=== PATIENT | male | born 1955 | race Caucasian/White ===

== ENCOUNTER 2019-02-06 10:52 | Inpatient (IN) ==
[2019-02-06] MEDS ORDERED: NS 1,000 ML IV ONE ×3 (11:23→12:49)
[2019-02-06 11:49] LABS: BASO# 0.03 X1000 (0.0-0.2); BASO% 0.5 % (0.0-0.8); EOS# 0.47 X1000 (0.0-0.7); EOS% 7.3 % (0.0-10.0); HEMATOCRIT 36.2 % (42.0-52.0); HEMOGLOBIN 12.7 g/dL (14.0-18.0); IMM GRAN# 0.07 X1000 (0.0-0.04); IMM GRAN% 1.1 % (0.0-0.5); INR 1.15; LYMPH# 0.99 X1000 (1.2-3.4); LYMPH% 15.3 % (20.5-51.1); MCH 31.7 PG (27-31); MCHC 35.1 g/dL (33-37); MCV 90.3 FL (81-99); MONO# 0.35 X1000 (0.11-0.59); MONO% 5.4 % (1.7-9.3); NEUT# 4.55 X1000 (1.4-6.5); NEUT% 70.4 % (42.2-75.2); PROTIME 15.3 Seconds (11.0-16.0); RBC 4.01 XMIL (4.7-6.1); WBC 6.46 X1000 (4.8-10.8)
[2019-02-06 11:50] LABS: PTT 26.3 Seconds (22.3-41.8)
[2019-02-06 11:51] LABS: PLT 32 X1000 (130-400)
[2019-02-06] MEDS ORDERED: LANOXIN IV ONE (11:51)
[2019-02-06 11:56] LABS: CALCIUM 7.2 mg/dL (8.8-10.2); CREATININE 2.2 mg/dL (0.7-1.2); POTASSIUM 5.1 mmol/L (3.5-5.1); TOTAL BILIRUBIN 0.9 mg/dL (0.20-1.00)
[2019-02-06] MEDS ORDERED: DOXYCYCLINE 100 MG in NS 250 ML IV ONE (11:57)
[2019-02-06 12:11] LABS: EOS 9 % (1-10); LYMPHS 12 % (21-51); MONO 9 % (1-9); SEGS 70 % (42-75)
[2019-02-06] MEDS ORDERED: ROCEPHIN 2 GM in NS 50 ML IV SCH (13:00)
[2019-02-06] MEDS ORDERED: NS 1,000 ML IV SCH ×2 (13:00→14:00)
[2019-02-06 13:07] LABS: BILIRUBIN URINE NEGATIVE (NEGATIVE); BLOOD URINE 2+ (NEGATIVE); CLARITY CLEAR (CLEAR); COLOR YELLOW; GLUCOSE URINE NEGATIVE (NEGATIVE); KETONE URINE NEGATIVE (NEGATIVE); LEUKOCYTES URINE NEGATIVE (NEGATIVE); NITRITE URINE NEGATIVE (NEGATIVE); PROTEIN URINE TRACE mg/dL (NEGATIVE); UROBILINOGEN URINE NORMAL
[2019-02-06 13:08] LABS: URINE BACTERIA NEGATIVE /HFP; URINE CAST NONE SEEN /LPF; URINE CRYSTAL NONE SEEN /HPF; URINE EPITHELIAL CELLS <10 /HPF (<10); URINE RBC <10 /HPF (<10); URINE SOURCE CLEAN CATCH; URINE WBC <10 /HPF (<10); URINE YEAST NONE SEEN /HPF
--- NOTE | 2019-02-06 13:39 | Diag Imaging Result Doc PS360 ---
EXAM: CT THORAX W/O CONTRAST HISTORY: sob TECHNIQUE: CT chest without contrast COMPARISON: None. FINDINGS: There are tiny bilateral pleural effusions. No cardiomegaly. No thoracic aortic aneurysm. Mildly prominent mediastinal and hilar lymph nodes. There are increased interstitial markings due to vascular distention. No consolidation. Tiny nonspecific nodular densities in the lungs. Scattered granuloma. Limited images through the upper abdomen reveal prominent fatty infiltration of the liver IMPRESSION: 1.Prominent pulmonary edema with tiny pleural effusions 2.Tiny nonspecific nodular densities 3.Fatty infiltration of the liver This exam was performed using automated exposure control, adjustment of mA or kV according to patient size, and/or use of iterative reconstruction technique. Electronically signed by Evans Vergara 02/06/2019 1:36 PM
--- NOTE | 2019-02-06 13:39 | EKG Report ---
Test Performed on : 02/06/2019 11:44:15 AM Test Reason : cp Blood Pressure : / mmHG Vent. Rate : 138 BPM Atrial Rate : 153 BPM P-R Int : 000 ms QRS Dur : 088 ms QT Int : 314 ms P-R-T Axes : 000 008 060 degrees QTc Int : 475 ms Atrial fibrillation. with rapid ventricular response. Nonspecific T wave abnormality Abnormal ECG No previous ECGs available Unconfirmed Result
[2019-02-06] MEDS ORDERED: CARDIZEM IV ONE (13:42)
[2019-02-06] MEDS ORDERED: CARDIZEM 100 MG/NS 100 MG/100 ML IVPB IV SCH (13:45)
[2019-02-06] MEDS ORDERED: SOLU-MEDROL IV ONE (13:45)
[2019-02-06] MEDS ORDERED: LEVOPHED 8 MG in D5 1/2 NS 250 ML IV SCH (13:45)
--- NOTE | 2019-02-06 13:45 | Diag Imaging Result Doc PS360 ---
EXAM: CHEST-PORTABLE HISTORY: sob TECHNIQUE: Portable chest COMPARISON: None. FINDINGS: The lungs are well expanded. The heart is not enlarged. The vessels are distended. There are no infiltrates. No effusion identified. IMPRESSION: Pulmonary edema Electronically signed by Evans Vergara 02/06/2019 1:43 PM
[2019-02-06] MEDS: ROCEPHIN 2 GM in NS 50 ML IV SCH (14:00)
[2019-02-06] MEDS: CARDIZEM 125 MG/D5W 125 MG/125 ML IVPB IV SCH ×2 (14:38→23:14)
[2019-02-06] MEDS ORDERED: CARDIZEM 125 MG/D5W 125 MG/125 ML IVPB IV SCH (15:00)
[2019-02-06] MEDS: XOPENEX NEB INH SCH ×3 (15:30→23:18)
[2019-02-06] MEDS: ATROVENT NEB INH SCH ×3 (16:04→23:18)
--- NOTE | 2019-02-06 16:25 | Diag Imaging Result Doc PS360 ---
EXAM: US ABDOMEN-COMPLETE HISTORY: evaluate spleen; thrombocytopenic purpura TECHNIQUE: Abdominal ultrasound COMPARISON: None. FINDINGS: Normal right kidney. No hydronephrosis. Normal left kidney. No hydronephrosis. Urinary bladder is distended and is normal. The pancreas is predominantly obscured. Inferior vena cava and aorta are also poorly seen. There is fatty infiltration of the liver. It is difficult to penetrate the liver. No ascites. No gallstones. Common bile duct measures 5 mm. The spleen measures 3.6 x 11.3 cm. IMPRESSION: Fatty infiltration of the liver Electronically signed by Evans Vergara 02/06/2019 4:22 PM
[2019-02-06] MEDS ORDERED: LASIX IV ONE (16:27)
--- NOTE | 2019-02-06 16:54 | PROVIDER DOCUMENTATION ---
This chart was entered by Carla Priest Scribe, acting as scribe for Tc Vallejo CRNP. HPI-General Adult - General Chief Complaint: Weakness Stated Complaint: ALLERGIC REACTION Time Seen by Provider: 02/06/19 11:18 Source: patient Allergies/Adverse Reactions: Patient Allergies Allergy/AdvReac Type Severity Reaction Status Date / Time azithromycin [From Zithromax] Allergy SWELLING Verified 02/06/19 11:46 pregabalin [From Lyrica] Allergy SWELLING Verified 02/06/19 11:46 tapentadol [From Nucynta] Allergy SWELLING Verified 02/06/19 12:37 - History of Present Illness -Gen Adult Nature of Presenting Problems: 63 y/o male presents to ED with generalized weakness onset 6 days ago after working outside in the heat. Pt reports he finished zithromax and prednisone prescribed by PCP 2 days ago. Pt also complains of diarrhea and SOB onset 2 days ago. reports pt had "chigger bites" a few days ago. Pt is alert and oriented. Location of Pain/Injury: reports: none Pain Radiation: reports: no radiation Quality of Pain: reports: none Severity: reports: moderate Onset/Duration: reports: 6 days ago Timing: reports: still present Context/Activities at Onset: reports: other (working outside in heat) Modifying Factors: improves with: nothing Associated Symptoms: reports: diarrhea, fatigue, malaise, rash, shortness of breath, weakness. denies: back/neck pain, chest pain, fever/chills, genitourinary problems, seizure Similar Symptoms Previously?: No Recently seen or treated by another doctor?: No Review of Systems - Adult - REVIEW OF SYSTEMS - ADULT Constitutional: denies: chills, fever Eyes: reports: no symptoms reported Ears, Nose, Mouth & Throat: reports: no symptoms reported Cardiovascular: denies: chest pain, palpitations Respiratory: reports: shortness of breath. denies: cough Gastrointestinal: reports: diarrhea. denies: abdominal pain, nausea, vomiting Genitourinary: reports: no symptoms reported. denies: incontinence Musculoskeletal: denies: back pain, joint pain Integumentary: reports: no symptoms reported Neurological: reports: other (generalized weakness). denies: dizziness/vertigo, numbness, paresthesia, seizure, slurred speech Psychiatric: reports: no symptoms reported Endocrine: reports: no symptoms reported Hematologic/Lymphatic: reports: no symptoms reported Allergic/Immunologic: reports: no symptoms reported All Other Systems: Reviewed and Negative Past History - Adult - PAST MEDICAL HISTORY-ADULT Review of Records: reports: Old Records Reviewed, Nursing Assessment Review, Medications Reviewed Major Childhood Illnesses: reports: denies history Musculoskeletal: reports: chronic pain, intervertebral disc disease, other (gout) - PRIOR SURGERIES/PROCEDURES Surgical/Procedure History: reports: back/neck - IMMUNIZATION STATUS Childhood Immunizations: See Nurse Assessment Flu Vaccine: See Nurse Assessment - FAMILY HISTORY Family History: reviewed, not pertinent - SOCIAL HISTORY Smoking: quit greater than 1 year Substance Use: none/never Alcohol Use Frequency: occasionally Living Situation: family Physical Exam-General - PHYSICAL EXAM-ADULT Initial Vital Signs Reviewed: Yes - CONSTITUTIONAL General Appearance: alert, mild distress - EYES Eyes: PERRL/EOMI, pink conjunctivae - HEAD, EARS, NOSE, MOUTH & THROAT HENMT: normocephalic/atraumatic, moist mucous membranes, normal ENT inspection - NECK Neck: non-tender, full range of motion, supple - RESPIRATORY Respiratory: chest non-tender, lungs clear, normal breath sounds - CARDIOVASCULAR Cardiovascular: tachycardia, irregularly irregular - GASTROINTESTINAL (ABDOMEN) Abdominal Exam: normal bowel sounds, non tender, soft, no organomegaly, distended. negative: guarding, rigid, rebound - LYMPHATIC Lymphatic: no adenopathy - MUSCULOSKELETAL Back Exam: normal inspection, no CVA tenderness, no vertebral tenderness Extremity: normal range of motion, non-tender, normal gait - SKIN Integumentary: normal color, warm/dry, purpura (to hands, abdomen, back, and buttocks). negative: swelling, tenderness, warm, zoster-like rash - NEUROLOGIC Neurologic: grossly normal, no motor/sensory deficits - PSYCHIATRIC Psych/Mental Status: normal mood/affect, normal thought content, normal thought process, oriented x 3 Progress - PLAN OF CARE/RESULTS Progress/Plan/Lab Results: Vital Signs - 8 hr 02/06/19 11:02 Temperature 97.7 F Pulse Rate 81 Respiratory Rate 16 Blood Pressure 84/45 O2 Sat by Pulse Oximetry 95 Laboratory Results - last 24 hr 02/06/19 02/06/19 02/06/19 11:30 11:30 11:30 WBC 6.46 RBC 4.01 L Hgb 12.7 L Hct 36.2 L MCV 90.3 MCH 31.7 H MCHC 35.1 RDW Std Deviation 13.0 Plt Count 32 L* MPV Not Reportable Immature Gran % (Auto) 1.1 H Neut % (Auto) 70.4 Lymph % (Auto) 15.3 L [place] % (Auto) 5.4 Eos % (Auto) 7.3 Baso % (Auto) 0.5 Immature Gran # (Auto) 0.07 H Neut # (Auto) 4.55 Lymph # (Auto) 0.99 L [place] # (Auto) 0.35 Eos # (Auto) 0.47 Baso # (Auto) 0.03 PT 15.3 INR 1.15 PTT (Actin FS) 26.3 Lipase 14 Orders Category Date Time Status Nursing- Obtain EKG ONCE Care 02/06/19 11:15 Active Orthostatic Vital Signs NOW Care 02/06/19 11:29 Active CHEST-2 VIEWS [RAD] Stat Exams 02/06/19 11:15 Ordered CBC WITH DIFF [HEME] Stat Lab 02/06/19 11:30 Results CK PROFILE [SP CHEM] Stat Lab 02/06/19 11:30 Received COMPREHENSIVE METABOLIC PANEL [CHEM] Stat Lab 02/06/19 11:30 Received LIPASE [CHEM] Stat Lab 02/06/19 11:30 Completed PRO B-NATRIURETIC PEPTIDE Stat Lab 02/06/19 11:30 Received PROTIME WITH INR [COAG] Stat Lab 02/06/19 11:30 Completed PTT [COAG] Stat Lab 02/06/19 11:30 Completed TROPONIN T Stat Lab 02/06/19 11:30 Received TSH Stat Lab 02/06/19 11:[address] W/POSS RFLX CULT [URINALYSIS] Stat Lab 02/06/19 11:15 Uncollected 0.9% Sodium Chloride Inj [Ns] 1,000 ml Med 02/06/19 11:23 Active IV 999 mls/hr Digoxin [Lanoxin] Med 02/06/19 11:51 Discontinued 250 microgm IV NOW ONE EKG [EKG] Stat Ther 02/06/19 11:15 Ordered Laboratory Tests 02/06/19 02/06/19 02/06/19 11:30 11:30 11:30 WBC 6.46 RBC 4.01 L Hgb 12.7 L Hct 36.2 L MCV 90.3 MCH 31.7 H MCHC 35.1 RDW Std Deviation 13.0 Plt Count 32 L* MPV Not Reportable Immature Gran % (Auto) 1.1 H Neut % (Auto) 70.4 Lymph % (Auto) 15.3 L [place] % (Auto) 5.4 Eos % (Auto) 7.3 Baso % (Auto) 0.5 Immature Gran # (Auto) 0.07 H Neut # (Auto) 4.55 Lymph # (Auto) 0.99 L [place] # (Auto) 0.35 Eos # (Auto) 0.47 Baso # (Auto) 0.03 PT 15.3 INR 1.15 PTT (Actin FS) 26.3 Sodium 132 L Potassium 5.1 Chloride 97 L Carbon Dioxide 21 L Anion Gap 14 BUN 50 H Creatinine 2.2 H Estimated GFR/1.73 m2 31 BUN/Creatinine Ratio 23 Glucose 158 H Calculated Osmolality 281 Calcium 7.2 L Total Bilirubin 0.90 AST 25 ALT 29 Alkaline Phosphatase 59 Creatine Kinase 24 Troponin T Total Protein 6.0 L Albumin 2.0 L Globulin 4.0 Albumin/Globulin Ratio 1.0 Lipase 02/06/19 02/06/19 11:30 11:30 WBC RBC Hgb Hct MCV MCH MCHC RDW Std Deviation Plt Count MPV Immature Gran % (Auto) Neut % (Auto) Lymph % (Auto) [place] % (Auto) Eos % (Auto) Baso % (Auto) Immature Gran # (Auto) Neut # (Auto) Lymph # (Auto) [place] # (Auto) Eos # (Auto) Baso # (Auto) PT INR PTT (Actin FS) Sodium Potassium Chloride Carbon Dioxide Anion Gap BUN Creatinine Estimated GFR/1.73 m2 BUN/Creatinine Ratio Glucose Calculated Osmolality Calcium Total Bilirubin AST ALT Alkaline Phosphatase Creatine Kinase Troponin T < 0.010 Total Protein Albumin Globulin Albumin/Globulin Ratio Lipase 14 Result Diagrams: 02/06/19 11:30 02/06/19 11:30 - REASSESSMENT Reassessment #1 Time Reassessed: 12:01 Status: unchanged (Dr. Brand called to bedside to assess the pt.) Reassessment #2 Time Reassessed: 12:30 (discussed findings with pt and . Made aware of need for admission) - EKG 1 Time of EKG reading by physician:: 11:44 EKG Read and Signed by:: Antonino Brand EKG Interpretation (*Must complete 3 of following elements*): Abnormal Rate: 138 Rhythm: A fib with RVR [place]: normal QRS: normal VT Interval: normal ST Wave: non-specific ST changes 2 Time of EKG reading by physician:: 15:45 EKG Read and Signed by:: Antonino Brand EKG Interpretation (*Must complete 3 of following elements*): Normal Rate: 84 Rhythm: NSR [place]: normal QRS: normal VT Interval: normal ST Wave: normal - XRAY 1 XRAY Study: Chest Impression: See EMR Report - CONSULTS/PCP/HOSPITALIST Notification #1 *Consult/PCP/Hospitalist*: Dr. David Time Discussed: 12:02 Consult Disposition: other (Rocephin 2g IV; doxy) #2 Consult: Dr Brand spoke with Dr Steel Time Discussed: 12:14 Consult Disposition: Will see in ED, Admit Departure - Departure Date of Disposition Decision: 02/06/19 Time of Disposition Decision: 12:14 DIAGNOSIS: Atrial fibrillation with RVR, Vasculitis, Anemia with low platelet count, MONICA (acute kidney injury) Disposition: ADMITTED INPATIENT 09 Certified Medical Emergency: Emergent Condition: Fair - Critical Care Note This patient required my direct & personal management of CC.: No Attestation - Physician/ ELIZABETH Attestation Patient care was provided by Advanced Practice Provider:: Yes Advanced Practice Provider:: Tc Vallejo Advanced Practice Provider documentation review:: The Mid-level provider documentation, treatment plan and medical decision making was reviewed by the physician who agrees with all treatment and medical decision making by the P. The physician spent face to face time with patient:: Yes Advanced Practice Provider documentation review:: Supervising physician onsite and consulted in the evaluation and care of this patient. The physician did have a face to face encounter with the patient. This chart was documented by the indicated scribe, (Carla Priest Scribe) and accurately reflects the services I performed and decisions made by me, Tc Vallejo CRNP, as attested by the provider's signature.
--- NOTE | 2019-02-06 17:25 | CARDIOLOGY CONSULTATION ---
DATE: 02/06/2019 CHIEF COMPLAINT ON PRESENTATION: Rash, weakness. HISTORY OF PRESENT ILLNESS: Mr. Hadley is a 63-year-old white male with a history of gout and COPD who presented for a 7- to 10-day history of generalized weakness, fatigue, subjective fevers at home as well as a rash that he noted. This has worsened over the preceding several days. Upon presentation to the ER, he was noted to be in rapid atrial fibrillation. Since that time, he has actually converted to a sinus rhythm. The patient is not aware of a previous history of atrial fibrillation. He has no recent cough or chest pain. He has no other complaints to me. He is somewhat weak but seems to still have somewhat of a sense of humor and attempts to answer all questions. PAST MEDICAL HISTORY: Significant for: 1. Apparent COPD. 2. Gout. SOCIAL HISTORY: He is . is present here today. He previously smoked. FAMILY HISTORY: Significant for hypertension. REVIEW OF SYSTEMS: A 10-system review of systems is negative except for those things mentioned in HPI. PHYSICAL EXAMINATION: Vital Signs: The patient has been afebrile here. His heart rate is currently 82. Blood pressure is 99/66. Generally: He is an ill-appearing white male in no acute distress, lying in bed. HEENT: Oropharynx is moist. Poor dentition. Eye examination shows pink conjunctivae, white sclerae. Neck: Examination shows no obvious thyromegaly or thyroid tenderness. Cardiovascular: He sounds to be in a regular rate and rhythm. Telemetry currently at the time to my examination is in sinus. He has no lower extremity edema. Chest: Clear to auscultation bilaterally. He has no increased work of breathing. Abdomen: Soft, nontender, nondistended. He has no obvious organomegaly. Skin: Warm and dry throughout. Still has a rash. Neurological: He is moving all extremities well. He has no nuchal rigidity. He is mentating well. He answers all questions appropriately. PERTINENT DATA: His chest CT shows fatty infiltration of the liver. Tiny nonspecific nodular densities are noted with prominent pulmonary edema with tiny pleural effusions. Notably, he had an exercise stress test performed in November of this year showing a negative echocardiogram for any sort of ischemic or arrhythmic issues. PFT's done previously showed mild obstructive airway disease. His laboratory data shows a white count of 6.4. His hematocrit is 36. His platelet count is 32. I do not have any other labs to compare on this patient. His INR is 1.15. His D- dimer is greater than 20. His sodium is 132. Potassium is 5.1. His BUN is 50, creatinine 2.2. Again, nothing to compare to. His CRP is 200. ProBNP is 2604. His albumin is 2. His lactate is 2.8. His TSH is normal. His magnesium level is 2.1. His urinalysis was reviewed. ASSESSMENT: Mr. Hadley is a 63-year-old gentleman who presents with generalized malaise/fatigue as well as a marked rash. His initial presentation demonstrated atrial fibrillation on his EKG. PLAN: He currently is in sinus rhythm. His echocardiogram is pending. His thyroid studies are unremarkable. Currently I would not make any adjustments in his medications. I certainly would not anticoagulate the patient given his current issues with thrombocytopenia. He is on antibiotics for possible infectious issues. In addition he is on some low doses of Levophed. There is certainly a concern for a vasculitis or possible infectious etiology. I also have a concern for possible TTP. We will continue to follow along with the patient. cc: Ignacio Cotto MD
[2019-02-06] MEDS ORDERED: ZOFRAN IV PRN (17:50)
[2019-02-06] MEDS ORDERED: TYLENOL PO PRN (17:50)
[2019-02-06] MEDS: NS 1,000 ML IV SCH (18:21)
[2019-02-06] MEDS: PRILOSEC PO SCH (18:21)
--- NOTE | 2019-02-06 18:33 | Diag Imaging Result Doc PS360 ---
EXAM: LUNG SCAN / VQ HISTORY: elevated ddimer and sob TECHNIQUE: Nuclear medicine ventilation/perfusion lung scan COMPARISON: Chest x-ray performed earlier FINDINGS: 37.2 mCi DTPA used for ventilation images. 5.7 mCi MAA given intravenously for the perfusion images. Ventilation and perfusion images obtained in multiple projections. No wedge shaped perfusion defects. No ventilation perfusion mismatches. IMPRESSION: No evidence of a pulmonary embolus. Electronically signed by Evans Vergara 02/06/2019 6:30 PM
[2019-02-06 18:58] LABS: IRON SATURATION 36 %; TIBC 107 ug/dL; TOTAL IRON 39 ug/dL (53-167); UNBOUND IRON 68 ug/dL (112-346)
[2019-02-06 19:17] LABS: FERRITIN 1164 ng/mL (30-400)
[2019-02-06] MEDS: PULMICORT INH SCH (19:17)
[2019-02-06] MEDS: SOLU-MEDROL IV SCH (20:13)
[2019-02-06] MEDS ORDERED: DOXYCYCLINE 100 MG in NS 250 ML IV SCH (23:00)
[2019-02-07] MEDS: DOXYCYCLINE 100 MG in NS 250 ML IV SCH ×2 (00:12→13:22)
[2019-02-07] MEDS: SOLU-MEDROL IV SCH ×4 (03:16→20:18)
[2019-02-07] MEDS: XOPENEX NEB INH SCH ×6 (03:19→23:29)
[2019-02-07] MEDS: ATROVENT NEB INH SCH ×6 (03:19→23:29)
[2019-02-07 04:18] LABS: ALLEN TEST YES; BE -5.3 mmoll (-3.0-3.0); BLOOD TYPE ARTERIAL; HCO3-(ACT) 20.7 mmoll (20.0-26.0); METHB 0.8 % (0.0-1.5); O2(CT) 20.4 mL/dL (15.0-23.0); O2HB 94.7 % (95.0-99.0); PCO2(98.6) 34 mmHg (35-45); PO2(98.6) 85 mmHg (60-100); SAMPLE BLOOD; THB 15.3 g/dL (11.5-17.4); pH(98.6) 7.36 (7.35-7.45)
[2019-02-07 04:19] LABS: MODALITY CANNULA
[2019-02-07] MEDS: NS 1,000 ML IV SCH ×2 (05:12→13:22)
[2019-02-07] MEDS: PRILOSEC PO SCH (06:21)
[2019-02-07 07:17] LABS: ALB/GLOB RATIO 0.6; ALBUMIN 2.1 g/dL (3.5-5.0); CREATININE 1.6 mg/dL (0.7-1.2); POTASSIUM 3.5 mmol/L (3.5-5.1); TOTAL BILIRUBIN 0.42 mg/dL (0.20-1.00); TOTAL PROTEIN 5.7 g/dL (6.3-8.3)
[2019-02-07 07:19] LABS: CALCIUM 6.6 mg/dL (8.8-10.2)
[2019-02-07] MEDS: CARDIZEM 125 MG/D5W 125 MG/125 ML IVPB IV SCH (07:47)
[2019-02-07] MEDS ORDERED: CALCIUM GLUCONATE 1 GM in NS 50 ML IV ONE (07:49)
[2019-02-07 08:07] LABS: BASO# 0.01 X1000 (0.0-0.2); BASO% 0.3 % (0.0-0.8); EOS# 0.04 X1000 (0.0-0.7); EOS% 1.4 % (0.0-10.0); HEMATOCRIT 33.3 % (42.0-52.0); HEMOGLOBIN 11.8 g/dL (14.0-18.0); LYMPH# 0.76 X1000 (1.2-3.4); LYMPH% 26.3 % (20.5-51.1); MCH 31.4 PG (27-31); MCHC 35.4 g/dL (33-37); MCV 88.6 FL (81-99); MONO# 0.09 X1000 (0.11-0.59); MONO% 3.1 % (1.7-9.3); NEUT# 1.99 X1000 (1.4-6.5); NEUT% 68.9 % (42.2-75.2); PLT 17 X1000 (130-400); RBC 3.76 XMIL (4.7-6.1); RDW 12.5 % (11.5-14.5); WBC 2.89 X1000 (4.8-10.8)
[2019-02-07] MEDS: PULMICORT INH SCH ×2 (08:18→19:53)
[2019-02-07 08:29] LABS: BANDS 10 % (0-1); LYMPHS 20 % (21-51); MONO 4 % (1-9); SEGS 64 % (42-75)
[2019-02-07 08:30] LABS: LARGE PLATELETS 1+; POIKILOCYTOSIS 1+; SCHISTOCYTES OCCASIONAL
--- NOTE | 2019-02-07 10:46 | PROGRESS NOTE ---
DATE: 02/07/2019 SUBJECTIVE: This morning, Mr. Hadley refers to be doing fairly okay. No new complaints except for generalized weakness. The was at the bedside at the time of the encounter. OBJECTIVE: Vital Signs: Blood pressure is 121/66, pulse of 81, respirations are 20, temperature is 97.5 degrees. General Examination: Mr. Hadley is 63-year-old, gentleman. He is in bed. No distress. HEENT: Mucosa is pink and moist. Anicteric, acyanotic. Neck: Supple. Chest: Air entry is bilaterally reduced. A few bilateral end inspiratory crackles. Cardiovascular: Regular rate and rhythm. There are no murmurs, no rubs, no gallops. Abdomen: Soft. Globally distended but nontender. Bowel sounds present. Extremities: No pedal edema. FORESTRY FOREMAN: The patient is awake, alert, oriented. There is no focal neurological deficit. Skin: The patient has multiple petechial lesions all over his skin including the palms and the soles of his feet. Laboratory Data: WBC is down to 2.89, hemoglobin is 11.8, platelet count is down to 17,000. The patient has 10% of bands on the peripheral smear. There are positive schistocytes. Chemistry is also reviewed. Creatinine is down to 1.6 from 2.2. Imaging Studies: From yesterday, a chest x-ray showed pulmonary edema. A CT scan of the chest showed prominent pulmonary edema with tiny pleural effusions, nonspecific nodular densities. An ultrasound of the abdomen did show fatty infiltration of the liver. At some point, an EKG did show atrial fibrillation with rapid ventricular response. ASSESSMENT: 1. Pancytopenia with significant thrombocytopenia associated with petechiae, ecchymotic skin lesions, and fever. 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 The patient is currently on antimicrobial therapy. Serologies have all been ordered and hematology/oncology has also been consulted. I have personally spoken with Dr. Mcdowell who is taking calls for [facility] ([facility] 2. Sepsis. Source of infection is unclear. It is presumed to be a respiratory tract infection vs [place] Spotty Fever. The patient is currently on antimicrobial therapy. A CT scan of the chest did make mention of nonspecific nodular densities. 3. Congestive heart failure with preserved ejection fraction. 4. Paroxysmal atrial fibrillation, presumably due to the underlying ongoing infection. The patient has been evaluated by cardiology. Currently, he is in sinus. 5. History of chronic obstructive pulmonary disease, questionable exacerbation. The patient is on standard therapy. PLAN: In general, Mr. Hadley is extremely critical but seems to be stable from a hemodynamic standpoint. He has microangiopathic anemia which etiologies could include ongoing sepsis versus drug-induced versus DIC or TTP. Hematology/oncology is aware and I have spoken directly with . We are going to continue with supportive care. We are going to continue with antimicrobial therapy. The patient has been given a unit of platelets. We are going to repeat the platelet count on the blood to see if there has been any adequate response. ID has been consulted. cc: Que Oviedo MD MTDD
[2019-02-07 11:23] LABS: MPV 12.3 FL (7.4-10.4)
--- NOTE | 2019-02-07 12:08 | INFECTIOUS DISEASE CONSULT REP ---
DATE: 02/07/2019 CONCLUSION: I think the patient has [place] spotted fever. Another possibility would be meningococcemia. RECOMMENDATIONS: Yesterday, Dr. Brand from the emergency room called me about the patient. I recommended to him to treat the patient with doxycycline 100 mg IV every 12 hours and Rocephin 2 g IV every 12 hours. DISCUSSION: The patient tells me approximately 4 days ago, he developed an erythematous punctate rash. He also began feeling tired and weak. He did have diarrhea but he has not passed any stool today. He denies having dysuria, cough. [place] works [place] He recently had chigger bites. He also did notice that he had a tick on him. Laboratory studies thus far show a CBC with a white count of 2890, hemoglobin 11.8, and platelet count 17,000. Creatinine is 1.6. GFR is 44. Blood gases show a pH of 7.36, a PO2 of 85, and a pCO2 of 34. Liver function studies are normal. Urinalysis shows no white cells or bacteria. The blood cultures are pending. The patient did go into atrial fibrillation but now he is back in sinus rhythm. PAST MEDICAL HISTORY/REVIEW OF SYSTEMS: Eyes and Ears: He does not have any trouble hearing or seeing. Neck: No stiffness. Respiratory: No cough or shortness of breath. GI: See present illness. : No dysuria or flank pain. Neurologic: No seizures. No loss of motor or sensory function. Integument: See present illness. PREVIOUS HOSPITALIZATIONS AND OPERATIONS: The patient has had surgery on his spine. No metal was placed. 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 MEDICAL DISEASES: Positive for COPD. Negative for diabetes or hypertension. INFECTIOUS DISEASE HISTORY: Positive for pneumonia. Negative for urinary tract infection. FAMILY HISTORY: Positive for diabetes mellitus, stroke, COPD, and cancer. SOCIAL HISTORY: [place] He is . He has cats and dogs for pets. He works outside frequently and is exposed to ticks. ALLERGIES: The patient is allergic to azithromycin, Lyrica, and Nucynta. All the manifestations of these allergies were swelling. MEDICATIONS TAKEN AT HOME: Include allopurinol, fluticasone, magnesium oxide, Nasonex, and Singulair. PHYSICAL EXAMINATION: Vital Signs: Temperature is 97.5 degrees, pulse 81, respirations 20, blood pressure 121/66. The patient weighs 201 pounds. General: This is an ill- appearing, middle-aged male. He is in no acute distress, however. Head, Eyes, Ears, Nose, and Throat: He can hear my spoken words and see near objects. I did not see any white patches in his mouth. Neck: No meningismus. Lungs: Clear to auscultation. Cardiovascular: Heart rate is regular. Abdomen: Soft and nontender. Integument: The patient has a diffuse erythematous punctate rash. He also has confluent erythematous areas, especially on his hands. Neurologic: The patient is alert. He can move his extremities. There is no tremor. His sensation is intact to touch. His memory as regarding his medical history was decreased. Thank you for the consult. cc: Manuel David MD MTDGhislaine
[2019-02-07] MEDS: ROCEPHIN 2 GM in NS 50 ML IV SCH (13:22)
--- NOTE | 2019-02-07 13:29 | CARDIOLOGY PROGRESS NOTE ---
DATE: 02/07/2019 SUBJECTIVE: Mr. Hadley feels a little bit better today. He still is weak. PHYSICAL EXAMINATION: He is afebrile, heart rate is 78, blood pressure 123/70. He has not been febrile overnight. General: No acute distress. Cardiovascular: He sounds to be in a regular rate and rhythm. He has no obvious murmurs. He has no S3. His telemetry shows sinus. His chest exam is clear bilaterally. He has no increased work of breathing. His abdomen is soft, nontender. His skin exam demonstrates continued petechial rash that appears actually a little bit improved in his bilateral upper extremities/hands. DATA: White count 2.8, hematocrit 33, his platelet count is 21,000 which is lower than yesterday at 32,000. He has a bandemia of 10. Sedimentation rate is 88. His ABG was reviewed. His sodium is 133, potassium is 3.5, his BUN is 44, creatinine is 1.6 which is improved. His AST and ALT are normal. His albumin is 2.1. ASSESSMENT: Mr. Hadley is a 63-year-old gentleman who presents with what is thought to be either [place] spotted fever or possible meningococcemia. He is being treated with antibiotics. He was in atrial fibrillation as well. PLAN: He has converted to sinus rhythm. Currently, he seems to be a CHADS-VASc of 0. His echocardiogram is currently pending. We would consider long-term aspirin therapy when he recovers and his platelets are improved. cc: Ignacio Cotto MD
--- NOTE | 2019-02-07 15:51 | ECHO REPORT ---
ORDER DATE: 02/06/2019 INDICATION: Atrial fibrillation. Sepsis. FINDINGS: 1. The right atrium appears normal in size at 2.9 cm. 2. Trace tricuspid regurgitation. Insufficient data to accurately estimate RV systolic pressure. 3. Normal RV size and systolic function. 4. No significant pulmonic insufficiency. 5. Normal left atrial size at 2.6 cm. 6. No mitral valve prolapse. Trace mitral regurgitation. 7. Normal LV size, end-diastolic dimension of 4.5. Mild left ventricular hypertrophy with a posterior and interventricular septal wall thickness 1.2 and 1.1 cm respectively. Normal LV systolic function. Estimated EF is 60% with normal wall motion. 8. Aortic valve opens well, trileaflet. No evidence of stenosis or insufficiency. 9. Aorta appears normal in visualized segments. 10. No pericardial effusion seen. cc: MD Jt Roque MD
[2019-02-07 20:47] LABS: UR CREAT RANDOM 52.9 mg/dL (14-26); UR UREA NITROGEN RANDOM 895 mg/dL
[2019-02-07 20:52] LABS: UR SODIUM < 10 mmoll
[2019-02-08] MEDS: DOXYCYCLINE 100 MG in NS 250 ML IV SCH (00:16)
[2019-02-08] MEDS: SOLU-MEDROL IV SCH ×4 (03:03→20:45)
[2019-02-08] MEDS: NS 1,000 ML IV SCH ×3 (04:27→23:42)
[2019-02-08 04:28] LABS: ALLEN TEST YES; BE -1.8 mmoll (-3.0-3.0); BLOOD TYPE ARTERIAL; HCO3-(ACT) 23.4 mmoll (20.0-26.0); METHB 1.1 % (0.0-1.5); O2(CT) 22.7 mL/dL (15.0-23.0); O2HB 93.9 % (95.0-99.0); PCO2(98.6) 31 mmHg (35-45); PO2(98.6) 79 mmHg (60-100); SAMPLE BLOOD; SAO2 96.5 % (95.0-100.0); THB 17.2 g/dL (11.5-17.4); pH(98.6) 7.44 (7.35-7.45)
[2019-02-08 04:29] LABS: MODALITY ROOM AIR
[2019-02-08] MEDS: XOPENEX NEB INH SCH ×6 (04:40→23:08)
[2019-02-08] MEDS: ATROVENT NEB INH SCH ×6 (04:40→23:08)
[2019-02-08] MEDS: PRILOSEC PO SCH (06:16)
[2019-02-08 07:02] LABS: AGAP 14; ALB/GLOB RATIO 0.8; ALBUMIN 2.5 g/dL (3.5-5.0); ALKALINE PHOSPHATASE 54 U/L (32-122); BUN 35 mg/dL (8-22); CALCIUM 7.8 mg/dL (8.8-10.2); CHLORIDE 103 mmol/L (98-107); COSMO 286; CREATININE 1.2 mg/dL (0.7-1.2); ESTIMATED GFR > 60; GLUCOSE 183 mg/dL (70-104); GOT 45 U/L (10-34); GPT 46 U/L (10-44); POTASSIUM 3.6 mmol/L (3.5-5.1); SODIUM 137 mmol/L (136-145); TCO2 20 mmol/L (25-35); TOTAL BILIRUBIN 0.45 mg/dL (0.20-1.00); TOTAL PROTEIN 5.8 g/dL (6.3-8.3)
[2019-02-08 07:20] LABS: BASO# 0.01 X1000 (0.0-0.2); BASO% 0.2 % (0.0-0.8); HEMATOCRIT 30.5 % (42.0-52.0); HEMOGLOBIN 10.8 g/dL (14.0-18.0); IMM GRAN# 0.04 X1000 (0.0-0.04); LYMPH# 0.91 X1000 (1.2-3.4); LYMPH% 22.2 % (20.5-51.1); MCH 31.4 PG (27-31); MCHC 35.4 g/dL (33-37); MCV 88.7 FL (81-99); MONO# 0.38 X1000 (0.11-0.59); MONO% 9.3 % (1.7-9.3); MPV 12.5 FL (7.4-10.4); NEUT# 2.75 X1000 (1.4-6.5); NEUT% 67.3 % (42.2-75.2); PLT 14 X1000 (130-400); RBC 3.44 XMIL (4.7-6.1); RDW 12.4 % (11.5-14.5); WBC 4.09 X1000 (4.8-10.8)
[2019-02-08 07:36] LABS: BANDS 4 % (0-1); HYPOCHROM 1+; LARGE PLATELETS 1+; LYMPHS 24 % (21-51); SEGS 68 % (42-75)
--- NOTE | 2019-02-08 08:23 | EKG Report ---
Test Performed on : 02/06/2019 3:45:54 PM Test Reason : ER Blood Pressure : / mmHG Vent. Rate : 084 BPM Atrial Rate : 084 BPM P-R Int : 136 ms QRS Dur : 090 ms QT Int : 382 ms P-R-T Axes : 065 012 046 degrees QTc Int : 451 ms Normal sinus rhythm. Normal ECG When compared with ECG of 06-FEB-2019 11:44, (Unconfirmed) Sinus rhythm. has replaced Atrial fibrillation. Vent. rate has decreased BY 54 BPM Unconfirmed Result
[2019-02-08] MEDS: PULMICORT INH SCH ×2 (08:25→19:47)
--- NOTE | 2019-02-08 08:52 | CARDIOLOGY PROGRESS NOTE ---
DATE: 02/08/2019 SUBJECTIVE: Mr. Hadley has no complaints today other than just fatigue. He did not sleep well last night. PHYSICAL EXAMINATION: Vital signs: The patient is afebrile. His heart rate is 77, blood pressure 131/68. He appears to be in sinus rhythm today. General: He is in no acute distress. Cardiovascular: He sounds to be in a regular rate and rhythm. He has no murmurs. He has no S3. No lower extremity edema. Chest: Exam sounds clear bilaterally. He has no increased work of breathing. Abdomen: Soft, nontender. PERTINENT DATA: White count is 4, hematocrit is 30, platelet count is 14,000 which continues to trend down. He continues to have a bandemia. His sodium is 137, potassium 3.6, his BUN is 35, creatinine is 1.2 which continues to improve. His LFTs are mildly abnormal. His albumin has improved. His echocardiogram from yesterday demonstrated a normal ejection fraction, mild LVH, no severe valvular abnormalities. ASSESSMENT: Mr. Hadley is a 63-year-old gentleman who presented with possible [place] spotted fever versus meningococcemia. He is being treated with antibiotics. Atrial fibrillation was noted on presentation. PLAN: He has converted to sinus. He has a CHADS-VASc of 0. We will plan on initiating aspirin when his platelets recover. Otherwise, I have no acute recommendations. cc: Ignacio Cotto MD
--- NOTE | 2019-02-08 09:15 | INFECTIOUS DISEASE PROGRESS NO ---
DATE: 02/08/2019 PRESENT ILLNESS: The patient has [place] spotted fever. I doubt that he has meningococcemia. On exam, the patient appears to be developing a white coat on his tongue and I think this could be the beginning of oral candidiasis. MEDICATIONS: The patient currently is getting IV Rocephin and IV doxycycline. PHYSICAL EXAMINATION: Vital Signs: Temperature is 98 degrees, pulse 77, respirations 19, blood pressure 131/68. General: This is an ill-appearing male. He is in no acute distress. HEENT: He can hear my spoken words and see near objects. He does have erythema of his face. There is no drainage from his nose or ears. He looks like he is beginning to have some white coating on his tongue suggestive of oral candidiasis. Neck: No meningismus. Lungs: Clear to auscultation. Cardiovascular: Regular heart rate. Abdomen: Soft and nontender. Neurologic: Patient is alert. He can move his extremities. There is no tremor. Integument: The patient's rash appears to be decreasing. LAB AND X-RAY: CBC shows a white count of 4090, hemoglobin 10.8 and platelet count 14,000. Blood gases show a pH of 7.44, a PO2 of 79, and a pCO2 of 31. Creatinine is 1.2. GFR is greater than 60. The patient's immunoglobulin levels are normal. Specifically, IgA is 299 and IgG is 1258. Both blood cultures are negative at 48 hours. Lung scan shows no pulmonary emboli. Abdominal ultrasound shows a fatty liver. ASSESSMENT AND PLAN: The patient has [place] spotted fever and I doubt he has meningococcemia. I have discontinued Rocephin and have changed doxycycline from IV to p.o. Also I started the patient on nystatin swish and swallow. 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 cc: Manuel David MD [facility]ENTER[facility]hislaine
--- NOTE | 2019-02-08 10:10 | PROGRESS NOTE ---
DATE: 02/08/2019 SUBJECTIVE: This morning, Mr. Hadley referred to be doing a whole lot better. He feels much stronger and he thinks the petechial/ecchymotic lesions, especially on his hands, are clearing up. The was at the bedside at the time of the encounter. OBJECTIVE: Vital Signs: Blood pressure is 141/77, pulse of 87, respirations are 18, temperature is 98.8, patient is saturating 94%. General Examination: Mr. Hadley is a 63-year-old, gentleman. He is in bed. He does not seem to be in any distress. HEENT: Mucosa is pink and moist. Anicteric. Acyanotic. Neck: Supple. Chest: Good air entry bilaterally. There were no crepitations, no rhonchi. No accessory muscle use. Cardiovascular: Regular rate and rhythm. GI: Abdomen was soft. Distended but nontender. Bowel sounds present. Extremities: No pedal edema. 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 Skin: Still has some ecchymotic and petechial lesions on the hands and the lower extremities as well. Laboratory Data: Has been reviewed. WBC is up to 4.09, hemoglobin is 10.8, platelet count is down to 14,000. There is only 4% of bands on the peripheral smear. ABG has been reviewed and is unremarkable. Chemistry is also reviewed. Creatinine is down to 1.1, normalized. So far, blood cultures have been 48 hours negative. ASSESSMENT: 1. Sepsis on presentation of unclear source. Presumably, [place] spotted fever. The patient is currently on ceftriaxone and doxycycline. Infectious disease is on board. 2. Severe thrombocytopenia associated with petechia and ecchymotic lesions. The patient was given a 1 time infusion of platelets. There was not any remarkable response and this morning, it has actually gone even lower which is indicative of continued peripheral destruction. We think this is associated with the underlying infection. 3. Paroxysmal atrial fibrillation, presumably due to the underlying critical care illness. The patient's heart rate is now sinus and rate controlled. 4. History of chronic obstructive pulmonary disease, questionable for exacerbation. 5. Acute kidney injury, resolved. PLAN: In general, Mr. Hadley seems to be doing a whole lot better. Not febrile any longer and he is not on any pressor. Platelet count continues to be extremely low. However, we know that would be the last one to start to show improvement. We are going to continue with the current antimicrobial coverage and we are still pending the other serology results. Mr. Hadley is also pending hematology/oncology evaluation today. cc: Que Oviedo MD
[2019-02-08 10:35] LABS: INR 1.07
--- NOTE | 2019-02-08 10:44 | Extremity Venous Study ---
PROCEDURE NAME: Venous U/S Bilateral Legs - 02/06/2019 HOUSE COORDINATOR: eJrrod. REQUESTING PHYSICIAN: Cece Snyder. INDICATIONS: Elevated D-dimer and pain with a recent history of insect bites. FINDINGS: The deep and superficial veins of the bilateral lower extremities were visualized along their course. All vessels appear compressible with forward flow and no evidence intraluminal thrombus. SUMMARY: No deep or superficial venous thrombosis seen in the bilateral lower extremities. cc: MD Cece Leyva CRNP
[2019-02-08] MEDS: MYCOSTATIN SUSP PO SCH ×3 (14:48→20:45)
[2019-02-08] MEDS: DOXYCYCLINE PO SCH (17:15)
[2019-02-09] MEDS: SOLU-MEDROL IV SCH ×3 (02:55→17:41)
[2019-02-09] MEDS: DOXYCYCLINE PO SCH ×2 (05:07→17:42)
[2019-02-09] MEDS: ATROVENT NEB INH SCH ×6 (06:04→23:34)
[2019-02-09] MEDS: XOPENEX NEB INH SCH ×6 (06:04→23:34)
[2019-02-09 06:15] LABS: BASO# 0.02 X1000 (0.0-0.2); BASO% 0.3 % (0.0-0.8); EOS# 0.02 X1000 (0.0-0.7); EOS% 0.3 % (0.0-10.0); HEMATOCRIT 30.3 % (42.0-52.0); HEMOGLOBIN 10.6 g/dL (14.0-18.0); IMM GRAN# 0.14 X1000 (0.0-0.04); IMM GRAN% 2.4 % (0.0-0.5); LYMPH# 1.27 X1000 (1.2-3.4); LYMPH% 21.4 % (20.5-51.1); MCH 31.5 PG (27-31); MCV 90.2 FL (81-99); MONO# 0.45 X1000 (0.11-0.59); MONO% 7.6 % (1.7-9.3); MPV 10.8 FL (7.4-10.4); NEUT# 4.03 X1000 (1.4-6.5); RBC 3.36 XMIL (4.7-6.1); WBC 5.93 X1000 (4.8-10.8)
[2019-02-09] MEDS: PRILOSEC PO SCH (06:17)
[2019-02-09] MEDS: NS 1,000 ML IV SCH ×2 (06:31→17:42)
[2019-02-09 06:40] LABS: AGAP 12; ALB/GLOB RATIO 0.7; ALBUMIN 2.4 g/dL (3.5-5.0); ALKALINE PHOSPHATASE 58 U/L (32-122); BUN 34 mg/dL (8-22); CALCIUM 7.8 mg/dL (8.8-10.2); CHLORIDE 105 mmol/L (98-107); COSMO 284; ESTIMATED GFR > 60; GLUCOSE 153 mg/dL (70-104); GOT 66 U/L (10-34); GPT 68 U/L (10-44); POTASSIUM 4.4 mmol/L (3.5-5.1); SODIUM 137 mmol/L (136-145); TCO2 20 mmol/L (25-35); TOTAL BILIRUBIN 0.54 mg/dL (0.20-1.00); TOTAL PROTEIN 5.7 g/dL (6.3-8.3)
[2019-02-09 07:26] LABS: PLT 17 X1000 (130-400)
[2019-02-09] MEDS: MYCOSTATIN SUSP PO SCH ×3 (08:28→17:41)
[2019-02-09] MEDS: PULMICORT INH SCH ×2 (08:30→19:36)
[2019-02-09 09:13] LABS: FLOW CYTOMETERY SOURCE WHOLE BLOOD; LEUKEMIA LYMPHOMA BY FLOW REFERRED FOR TESTING
--- NOTE | 2019-02-09 09:16 | HISTORY AND PHYSICAL ---
PRIMARY CARE PROVIDER: DR. Tripp Reid. CHIEF COMPLAINT: Rash. Shortness of breath. HISTORY OF PRESENT ILLNESS: Mr. Parvez Hadley is a 63-year-old, male with a medical history of gout and COPD along with chronic pain due to degenerative disk disease. The chronic pain tends to be in the neck, shoulders and the legs. States that around 2 weeks ago, he was working on a family member's shed where there was apparently a lot of shrubbery and mold and cline. From that time, he had developed chigger bites all over his body, neck to ankles. He was unclear if he had received any tick bites. A few days later, he took the building down. A few days after that, he mowed the grass. During this whole time, he was getting overheated. He had worsening shortness of breath. Started developing fever, occasional cough. On 02/03/2019 the family called [facility] and he was prescribed Medrol Dosepak along with azithromycin. Apparently, that is when his rash started on the hands and now it actually looks more like a purpura. It is all over the hands, under the arms, on the back, on his lower bottom, and sporadically over the legs. Despite that he still continued to have worsening shortness of breath along with some swelling and weakness which caused him to come here for medical treatment. Apparently, he had also been having issues with blowing his nose and blood coming out. Findings show there is a plasma lactate of 2.8. His white blood cells are actually normal. He is dehydrated and since he has showed signs of thrombocytopenia purpura. He actually developed atrial fibrillation with rapid ventricular response. Somewhat lower on his blood pressure. He has received excessive IV fluid hydration. He had to get digoxin. He will be started on Cardizem drip. We will transfer him to the ICU at [facility]. PAST MEDICAL HISTORY: 1. Gout. 2. COPD. 3. Chronic pain syndrome with degenerative disk disease primarily in the neck. Also has pain in his legs and shoulders. No history of atrial fibrillation. SURGICAL HISTORY: Echocardiogram and stress test this past month. Back nerve scar tissue surgery. SOCIAL HISTORY: Quit smoking 5 years ago, but prior to that was a 1 pack per day smoker since apparently at the age of 7. Currently drinks a 6 pack of beer about every 3 or 4 days. Denies any illicit drug use. He is disabled. and daughter are at the bedside. FAMILY HISTORY: Apparently the mother abandoned him at , but the father and uncle or brothers, it is unclear, but family raised him on his father's side; and on that side of the family there is heart disease, diabetes, alcoholism, and unknown type of cancer. ALLERGIES: Lyrica. Azithromycin. Nucynta. HOME MEDICATIONS: Not reconciled at this time, but looking at recent prescriptions filled includes: Breo Ellipta. Hydroxyzine. Azithromycin. Magnesium oxide. Medrol dose pack. Singulair. Phenergan. Triamcinolone. REVIEW OF SYSTEMS: Fourteen-point review of systems are complete and all were negative except those mentioned above in HPI. PHYSICAL EXAMINATION: VITAL SIGNS: Temperature 97.7 degrees, heart rate 143, respiratory rate 16, blood pressure 84 to 124 systolic, O2 saturation 95% on room air. He is 6 foot 0 inches tall, 200 pounds, BMI is 27.1. GENERAL: Mr. Parvez Hadley is a 63-year-old male. He is in mild distress. He is able to answer some questions appropriately, but gets a little out of breath while answering questions. HEENT: Atraumatic, normocephalic. Pupils equal, round, and reactive to light. Extraocular movements intact. Mucous membranes are dry. NECK: Trachea midline. CARDIOVASCULAR: Irregularly irregular. Tachycardic rate and rhythm. No rubs, gallops, murmurs. Trace lower extremity edema. Plus 2 dorsalis and radial pulses. Negative JVD or carotid bruits. PULMONARY: Expiratory wheezes throughout, decreased in the bases. Mild accessory muscle use and work of breathing noted. GASTROINTESTINAL: Soft. Positive bowel sounds x4. He is actually mildly distended on his abdomen, but nontender. EXTREMITIES: Moves all extremities equally. Full range of motion. NEUROLOGIC: A and O x3. Follows commands. Sensory is intact. SKIN: Warm, dry, intact except for there is significant purpura over the hands, under the arms, on the back, on the bottom, and sporadically on both legs. No open wounds. LABORATORY DATA: White blood cells 6000, hemoglobin 12, hematocrit 36, platelet count 32,000. INR is 1.15. PTT is 26.3. D-dimer is greater than 20. Sodium 132, potassium 5.1, BUN 50, creatinine is 2.2, glucose 158, calcium 7.2, bilirubin 0.90, AST 25, ALT 29, CK 24. Troponin less than 0.01. ProBNP 2604. Albumin is 2.0. Lipase 14. Serum lactate is 2.8. TSH 3.21. Urinalysis: Trace protein 2+. IMAGING: None available yet, but we have ordered echocardiogram, chest x-ray, CT of the thorax, ultrasound of the abdomen, and a V/Q scan. EKG was reviewed. He has atrial fibrillation with RVR. Rate was 138. ASSESSMENT AND PLAN: Thrombocytopenic purpura with purpura rash over the hands, under the arms, on the back, and on the legs and a platelet count of 32,000. We will likely need to start steroids and monitor for signs or symptoms of bleeding. We are going to be consulting Dr. David and may need an IVIG transfusion. We will get some IgG levels. Chronic obstructive pulmonary disease with possible exacerbation. Currently awaiting ABG results. Not exactly requiring oxygen, but he is having a little bit of respiratory effort, so he can have p.r.n. oxygen and of course he will be on steroids and nebulizers. New-onset atrial fibrillation with rapid ventricular response with associated hypotension. He has received 1 dose of digoxin. He is attempting to convert, but he is still in atrial fibrillation with rapid ventricular response. So we will start a Cardizem drip. He has already had over 2 L of fluid. Monitor for the need of blood pressure control with possibly Levophed. Elevated D-dimer. V/Q scan has been ordered. He has acute kidney injury. Currently, we will get a CAT scan. We will get venous ultrasounds. No signs of deep venous thromboses in the lower extremities. He is likely just high risk for inflammation due to the disease process due to the thrombocytopenic purpura. Upper respiratory infection. Awaiting imaging to evaluate for pneumonia. Dr. David has been consulted by the ER physician and with recommendations has been started on doxycycline and ceftriaxone. So will consult him. White count is actually normal and we have some lactic acidosis. He has received well over 2 L of fluid. He is on his third liter at this time. He is mildly hypotensive, but this is also in the setting of atrial fibrillation with rapid ventricular response. Chronic pain. We will evaluate the need for pain medication during his stay. Acute kidney injury. Unknown if there is a chronic kidney disease involved, but we will get urine studies. He has received IV fluid hydration. He is also going to be having an ultrasound which will include the kidneys. Deep venous thrombosis prophylaxis. SCDs for now as we are having to monitor for signs or symptoms of bleeding due to the thrombocytopenic purpura. Dictated by FLORENCE Gonzales for Jt Abad MD Addendum: Patine seen and examined by myself. Agree with FLORENCE note. It reflects my assessment and plan. Patient is being admitted to hospital for COPD exacerbation and thrombocytopenic purpura. Will consult Pulmonary and Hematology. Will monitor patient in ICU. Will start Cardizem drip for new onset atrial fibrillation, will get an echocardiogram and consult Cardiology. Will monitor patient closely. cc: FLORENCE Gonzales MD [facility]
--- NOTE | 2019-02-09 11:24 | PROGRESS NOTE ---
DATE: 02/09/2019 SUBJECTIVE: This morning, Mr. Hadley referred to be doing a whole lot better. No headaches. No fever. He thinks the rash is getting better. OBJECTIVE: Vital signs: Blood pressure is 146/86, pulse 84, respirations 16, temperature 98.4. General: Mr. Hadley is a 66-year-old male. He is in bed, no distress. HEENT: Mucosa is pink and moist. Anicteric. Acyanotic. Neck: Supple. Chest: Good air entry bilateral. There was no crepitations, no rhonchi. Cardiovascular: Regular rate and rhythm. GI: Abdomen is soft, nontender. Bowel sounds present. Extremities: No pedal edema. 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 Skin: Has mild ecchymotic lesions which seem to be fading away. LABORATORY DATA: WBC is up to 5.93, hemoglobin is 10.6, platelet count is up to 17. Chemistry is also reviewed, unremarkable. Creatinine has normalized. ASSESSMENT: 1. Sepsis picture on presentation secondary to [place] spotted fever. So far, blood cultures have been negative. The patient is on p.o. doxycycline. Infectious Disease is on board. 2. Severe thrombocytopenia secondary to [place] spotted fever, improving. 3. Paroxysmal atrial fibrillation. The patient is currently in sinus and rate controlled. Cardiology has evaluated him. 4. COPD with mild exacerbation on presentation, resolved. 5. Acute kidney injury, resolved. PLAN: In general, I think Mr. Hadley is doing a whole lot better. He is being treated for presumed [place] spotted fever. He seems to be responding well to therapy at this point. His platelet count has slightly improved today. His creatinine has normalized, and he is making adequate urine. We are going to discontinue the [place] catheter. We are going to transfer him to the floor. We will continue with the current antimicrobial therapy. We are still pending the serologies for the [place] spotted fever. The patient's sodium has normalized. cc: Que Oviedo MD
--- NOTE | 2019-02-09 12:16 | INFECTIOUS DISEASE PROGRESS NO ---
DATE: 02/09/2019 PRESENT ILLNESS: Mr. Hadley is being treated for possible [place] spotted fever. He also has an oral candidiasis. MEDICATIONS: He is receiving oral doxycycline 100 mg every 12 hours, and nystatin swish and swallow. PHYSICAL EXAMINATION: Vital Signs: Temperature is 98.4 degrees, pulse rate 84, respiratory rate 16, blood pressure 146/86. O2 saturation is 95% on room air. General: This is a chronically ill- appearing, middle-aged gentleman. He is lying in the bed, currently in no acute distress. HEENT: Atraumatic, normocephalic. Oral mucous membranes are pink and moist with some mild white coating to his tongue. Conjunctivae are pink. Neck: Supple. Trachea is midline. Cardiovascular: Heart rate and rhythm are regular. Normal sinus rhythm on the monitor. Respiratory: Lung sounds are clear to auscultation bilaterally. Diminished in the bases. Abdomen: Soft. Mildly distended, nontender. Bowel sounds are active. Integumentary: There is petechial hemorrhaging noted mostly in the upper extremities bilaterally. This is improving. Neurologic: He is awake, alert, oriented, and able to move around in the bed with generalized fatigue noted. LABORATORY AND X-RAY: Today his white count is 5.93, hemoglobin 10.6, platelet count 17,000. Creatinine is 1, estimated GFR is greater than 60. Total bilirubin is 0.54, AST is 66, ALT is 68, alkaline phosphatase 58. Blood cultures have been sterile on this admission. No imaging reports today. ASSESSMENT AND PLAN: Mr. Hadley is being treated for [place] spotted fever. He is receiving doxycycline by mouth twice a day. I have reminded him to always sit up for at least 30 minutes after taking the doxycycline to prevent acid reflux. I have also reminded him not to use any dairy or iron products at the time of administration but to take it with food to prevent stomach upset and heartburn. He also has oral candidiasis with some white coating to his tongue. We will continue the nystatin swish and swallow. These plans have been discussed with and recommended by Dr. David. COMORBIDITIES: Severe thrombocytopenia, chronic obstructive pulmonary disease with pulmonary edema, and paroxysmal atrial fibrillation. Dictated by FLORENCE Jackson for Manuel David MD cc: Manuel David MD [facility]his[facility]
--- NOTE | 2019-02-09 13:29 | CARDIOLOGY PROGRESS NOTE ---
DATE: 02/09/2019 SUBJECTIVE: Mr. Hadley reports he feels better today. PHYSICAL: Vital Signs: He is afebrile, heart rate 83, blood pressure 136/77. He appears to be in sinus. Generally: He is in no acute distress. Cardiovascular: He sounds to be in a regular rate and rhythm. He has no murmurs. He has no S3. He has no lower extremity edema. Chest: His chest exam is clear bilaterally. He has no increased work of breathing. Abdomen: Soft, nontender. PERTINENT DATA: BUN and creatinine are 34 and 1.0, which continues to improve. His platelet level was 17, which is roughly stable. ASSESSMENT: Mr. Hadley is a 63-year-old gentleman, who presented in atrial fibrillation and felt to have [place] spotted fever. PLAN: I would initiate an aspirin when his platelets recover. His echocardiogram showed a preserved ejection fraction with an estimated EF of 60%. I will follow him intermittently at this time. cc: Ignacio Cotto MD
[2019-02-09] MEDS ORDERED: GAMUNEX-C 10% IV ONE (15:45)
[2019-02-09 16:23] LABS: ANTINEUTROPHIL CYTOPLASMIC AB SEE COMMENTS
[2019-02-10] MEDS: SOLU-MEDROL IV SCH ×2 (00:07→10:32)
[2019-02-10] MEDS: MYCOSTATIN SUSP PO SCH ×2 (00:07→10:33)
[2019-02-10] MEDS: XOPENEX NEB INH SCH ×3 (03:45→11:40)
[2019-02-10] MEDS: ATROVENT NEB INH SCH ×3 (03:45→11:40)
[2019-02-10] MEDS: DOXYCYCLINE PO SCH (04:54)
[2019-02-10] MEDS: PRILOSEC PO SCH (06:13)
[2019-02-10 07:08] LABS: HEMATOCRIT 31.6 % (42.0-52.0); HEMOGLOBIN 10.8 g/dL (14.0-18.0); MCH 31.2 PG (27-31); MCHC 34.2 g/dL (33-37); MCV 91.3 FL (81-99); RBC 3.46 XMIL (4.7-6.1); RDW 13.7 % (11.5-14.5); WBC 8.22 X1000 (4.8-10.8)
[2019-02-10 07:09] LABS: BASO# 0.02 X1000 (0.0-0.2); BASO% 0.2 % (0.0-0.8); EOS# 0.01 X1000 (0.0-0.7); EOS% 0.1 % (0.0-10.0); IMM GRAN# 0.41 X1000 (0.0-0.04); LYMPH# 1.65 X1000 (1.2-3.4); LYMPH% 20.1 % (20.5-51.1); MONO% 9.7 % (1.7-9.3); NEUT# 5.33 X1000 (1.4-6.5); NEUT% 64.9 % (42.2-75.2)
[2019-02-10 07:11] LABS: PLT 24 X1000 (130-400)
[2019-02-10 07:23] LABS: AGAP 10; ALB/GLOB RATIO 0.8; ALBUMIN 2.5 g/dL (3.5-5.0); ALKALINE PHOSPHATASE 58 U/L (32-122); BUN 35 mg/dL (8-22); CALCIUM 7.4 mg/dL (8.8-10.2); CHLORIDE 104 mmol/L (98-107); COSMO 281; CREATININE 0.9 mg/dL (0.7-1.2); ESTIMATED GFR > 60; GLUCOSE 118 mg/dL (70-104); GOT 65 U/L (10-34); GPT 76 U/L (10-44); POTASSIUM 4.5 mmol/L (3.5-5.1); SODIUM 136 mmol/L (136-145); TCO2 22 mmol/L (25-35); TOTAL BILIRUBIN 0.73 mg/dL (0.20-1.00); TOTAL PROTEIN 5.6 g/dL (6.3-8.3)
[2019-02-10] MEDS: PULMICORT INH SCH (07:30)
[2019-02-10 12:31] VITALS: BP 142/75
--- NOTE | 2019-02-10 13:53 | CARDIOLOGY PROGRESS NOTE ---
DATE: 02/10/2019 SUBJECTIVE: Mr. Hadlye reports he is doing better today. He has no pain complaints. He feels like his strength is improving and returning. OBJECTIVE: Afebrile, heart rate 65, blood pressure 142/75. General: He is in no acute distress. Cardiovascular: He sounds to be in a regular rate and rhythm. He has no murmurs. He has no S3. He has no lower extremity edema. His chest exam is clear bilaterally. He has no increased work of breathing. Abdomen: Soft, nontender. PERTINENT DATA: White count 8.2, hematocrit 31, platelet count is 24,000, which has been increasing since the . His sodium is 136, potassium 4.5, BUN 35, creatinine 0.9. His LFTs are mildly elevated but stable from yesterday. ASSESSMENT: 1. Mr. Hadley is a 63-year-old gentleman with apparent [place] spotted fever. 2. He presented with some mild bouts of atrial fibrillation on presentation. PLAN: At this point, he has a preserved ejection fraction, paroxysmal atrial fibrillation. He may be discharged home from a Cardiology standpoint. I would withhold aspirin until I follow up on him in the office. cc: Ignacio Cotto MD
--- NOTE | 2019-02-10 14:51 | INFECTIOUS DISEASE PROGRESS NO ---
DATE: 02/10/2019 PRESENT ILLNESS: The patient has [place] spotted fever. He developed oral candidiasis most likely because he got high doses of antibiotics and steroids. MEDICATIONS: The patient is on doxycycline 100 mg p.o. every 12 hours and Nystatin Swish and Swallow. PHYSICAL EXAMINATION: Vital signs: Temperature is 97.6, pulse 69, respirations 18, blood pressure 145/63. General: This is a somewhat ill-appearing middle aged male. He is more alert and today walked, and there is no tremor. Head, Eyes, Ears, Nose, and Throat: He can hear my spoken words and see near objects. He does not have any white patches in his mouth. Neck: No meningismus. Lungs: Clear to auscultation. Cardiovascular: Heart rate is regular. Abdomen: Soft and nontender. Integument: The patient's rash is getting better. Neurologic: The patient is alert. He as mentioned above ambulated in the [place]. LAB AND X-RAY: There are no new radiographic study. The procalcitonin is 7.2. Creatinine 0.9, GFR is greater than 60. CBC shows a white count of 8220, hemoglobin 10.8, platelet count 24,000. ASSESSMENT AND PLAN: The patient has [place] spotted fever. The patient is going to be discharged today. I have put a prescription for doxycycline 100 mg p.o. every 12 hours for 10 more days. This will complete a 2 week treatment course. I got the prescription from the computer. I have requested that the patient be seen in my office in 1 week at which time the patient will be examined and we will repeat CBC to make sure that the platelets continue to increase. I told the patient that he needs to rest and very gradually increase his activity. Also, I explained to him that because of his low platelet count it will be very easy for him to bleed. If he does start bleeding or if he gets real weak and tired and looks pale and if he looks like he is having black stools or bloody stools he needs to come to the emergency room immediately. COMORBIDITIES: The patient has chronic obstructive pulmonary disease. He also has paroxysmal atrial fibrillation. 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 cc: Manuel David MD MTDD
--- NOTE | 2019-02-10 19:49 | HEMO/ONC CONSULTATION ---
DATE: 02/08/2019 ADMITTING PHYSICIAN: Dr. Abad. REQUESTING PHYSICIAN: Dr. Abad. We appreciate this consult. CHIEF COMPLAINT: Thrombocytopenia. HISTORY OF PRESENT ILLNESS: Mr. Parvez Hadley is a pleasant, 63-year-old male with a history of gout, COPD, chronic pain, and degenerative disk disease. The patient reports that approximately 2 weeks prior to admission, he was working on a family member's shed and developed chigger bites covering his entire body. The patient reports that shortly thereafter, he began to develop a fever with occasional cough. The patient was prescribed a Medrol Dosepak with azithromycin, but developed a significant rash after that time that covered his bilateral upper extremities, lower extremities, back, and buttocks. The patient began to have worsening shortness of breath with swelling of his lower extremities and weakness. He presented to [facility] Emergency Department. Additionally, the patient reports that he was having nosebleeds. Upon presentation to [facility] Emergency Department, the patient was found to have a plasma lactate of 2.8. The patient was found to be in atrial fibrillation with rapid ventricular response, and had hypotension. The patient was started on a Cardizem drip and transferred to ICU. Ultimately, the patient was found to be thrombocytopenic with a platelet count of 14,000, for which we are consulted. PAST MEDICAL HISTORY: As in HPI. PAST SURGICAL HISTORY: Back nerve scar tissue surgery. SOCIAL HISTORY: The patient quit smoking 5 years ago. He had been a 1 pack per day smoker since a young age. The patient currently drinks a 6-pack of beer approximately over 3 to 4 days. He denies illicit drug use. FAMILY HISTORY: Significant for an unknown type of cancer on his father's side. The patient did not know his mother. MEDICATIONS ON ADMISSION: 1. Breo Ellipta. 2. Hydroxyzine. 3. Azithromycin. 4. Magnesium oxide. 5. Medrol Dosepak. 6. Singulair. 7. Phenergan. 8. Triamcinolone cream. ALLERGIES: Lyrica, azithromycin, and Nucynta. REVIEW OF SYSTEMS: A 14 point review of systems was obtained and is negative except for mentioned in HPI. PHYSICAL EXAMINATION: General: Mr. Hadley is a pleasant, 63-year-old, male, lying supine in bed in no immediate distress. Vital Signs: Temperature 98.8 degrees, blood pressure 138/75, heart rate 86, respirations 22, O2 saturation 93% on 2 L nasal cannula O2. HEENT: Normocephalic, atraumatic. Mucous membranes are pale and moist. Sclerae are anicteric. Extraocular movements intact. Neck: Supple. Lungs: Clear to auscultation bilaterally. Chest expansion is equal bilaterally. CV: S1, S2 are heard without murmur, rub, or gallop. Abdomen: Nondistended. Extremities: No clubbing or cyanosis. The patient does have 2+ bilateral lower extremity edema. Dermatologic: The patient does have significant purpura over hands, upper arms, back, and buttocks, as well as both legs, as well as petechiae. Neurologic: The patient is awake, alert, and oriented x3. He has no focal deficits. LABORATORY DATA: Hemoglobin 10.8, hematocrit 30.5, white blood cell count 4.09, platelets 14,000. Sodium 137, potassium 3.6, chloride 103, CO2 is 20, BUN 35, creatinine 1.2, and glucose is 183. Calcium is 7.8. ASSESSMENT AND PLAN: 1. Thrombocytopenia of questionable etiology, in a patient with a new diagnosis of probable [place] Spotted Fever and sepsis. We will initiate a workup at this time. We will transfuse 1 unit of platelets at this time. We will continue to monitor the patient closely. We would recommend transfusion of platelets if the patient's platelets are 20 or less, or with any significant bleeding. We will continue to follow. 2. Questionable [place] Spotted Fever and sepsis. Infectious Disease is currently following. The patient is on doxycycline and ceftriaxone. 3. Atrial fibrillation with rapid ventricular response. Cardiology is currently following. 4. Anemia. Hemoglobin is currently 10.8. We would continue to monitor CBC and monitor the patient for any bleeding. 5. We will follow along with you and make further recommendations pending outcomes. The above reflects the history, exam, assessment, and plan of Dr. Gudino. Dictated by FLORENCE Snell for Julian Gudino MD cc: FLORENCE Snell MD
--- NOTE | 2019-02-11 08:10 | DISCHARGE SUMMARY ---
ADMISSION DATE: 02/06/2019 DISCHARGE DATE: 02/10/2019 DISPOSITION: Home. FOLLOW-UP: 1. Dr. David. 2. Dr. Mcdowell. 3. Dr. Ignacio Cotto. 4. Dr. Tripp Reid. CONSULTATION DURING THIS ADMISSION: ID was consulted. Patient was seen by Dr. David. INVASIVE PROCEDURES DONE DURING THIS ADMISSION: None. IMAGING STUDIES OF SIGNIFICANCE: 1. A chest x-ray did show pulmonary edema. 2. A CT scan of the chest did show pulmonary edema with tiny pleural effusion. There were tiny nonspecific nodular densities, fatty infiltration of the liver. 3. A lung V/Q scan showed no evidence of pulmonary emboli. 4. Extremity Doppler was negative for DVT. ADMISSION DIAGNOSES: 1. Thrombocytopenia with purpura. 2. Chronic obstructive pulmonary disease, possible exacerbation. 3. New onset atrial fibrillation with rapid ventricular response. 4. Elevated D-dimer. 5. Upper respiratory tract infection. DIAGNOSES AT THE TIME OF DISCHARGE: 1. Sepsis on presentation secondary to [place] spotted fever. 2. Severe thrombocytopenia secondary to [place] spotted fever. 3. Paroxysmal atrial fibrillation. 4. Chronic obstructive pulmonary disease with mild exacerbation resolved. 5. Acute kidney injury resolved. 6. 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 The patient will follow up with Dr. Mcdowell/Dr. Gudino. DISCHARGE MEDICATIONS: 1. Allopurinol 100 mg b.i.d. 2. Magnesium oxide 400 mg daily. 3. Albuterol inhaler. 4. Doxycycline 100 mg p.o. daily. 5. Aspirin 325 p.o. daily. PRESENTING COMPLAINT: Shortness of breath. HISTORY OF PRESENTING COMPLAINT: Mr. Hadley is a 63-year-old, male who has a history of gout, COPD, degenerative disk disease presented to the emergency department after he was bitten by ticks about 3 days prior. Presented because of generalized weakness, fever, chills, shortness of breath and some rash on his extremities. The patient initially presented to [facility] where he was evaluated and was transferred to [facility] for higher level of care. HOSPITAL COURSE: Mr. Hadley was admitted to the ICU and for the 1st couple days he was started on broad-spectrum IV antibiotics including doxycycline and ceftriaxone. The patient was seen by Dr. David. A tentative diagnosis of [place] spotted fever was made and patient was treated accordingly. He did have multiple abnormalities and derangement in his lab work. All got resolved during the hospital course and clinically Mr. Hadley continues to improve. He was seen by multiple comorbidities including Cardiology because he had developed atrial fibrillation RVR which got controlled. He was also seen by Heme-Onc and they will follow him up as well as outpatient. This morning, Mr. Hadley referred to be doing a whole lot better. All the rash on his lower extremities have completely resolved. He is in stable condition for discharge. His vitals at the time of discharge, blood pressure is 142/75, pulse is 65, respirations 16, temperature 98.1 degrees .the patient is completely asymptomatic. His lab work this morning has also been reviewed. His platelet count continues to improve. All the discharge instructions have been discussed with him and he voiced understanding. was at the bedside at the time of the encounter. TIME SPENT: The time spent for discharge is 36 minutes. cc: MD Manuel Maguire MD Micah A. Howard, MD Peter Johnson, MD Sammy Becdach, MD Amy Stubbs, MD
== END 2019-02-10 14:35 | disposition home or self-care (01) | DRG 872 ==
LOC: P.ED 10:52 → 3S 10:53 → SUATTDRO 10:53 → ICU 16:36 → 4N 02-09 15:16
PROVIDERS: ATTEND Internal Medicine